=== PATIENT | female | born 1980 | race Caucasian/White ===

== ENCOUNTER 2019-04-14 09:07 | Outpatient (CLI) | payer BC ==
--- NOTE | 2019-04-14 11:26 | CT ---
CT neck soft tissues with and without contrast: (Parathyroid protocol) 04/14/2019 HISTORY: 39-year-old female with recurrent hyperparathyroidism after surgical removal of parathyroid adenoma i n 2016. COMPARISON: 11/06/2015. TECHNIQUE: Precontrast, 25 seconds postcontrast, and 65 second postcontrast, scans performed from T6-7 level to the inferior edge of orbits. Coronal and sagittal reconstructions. FINDINGS: The previously demonstrated enhancing nodule abutting the posterior surface of the right lobe of thyr oid gland at the tracheoesophageal groove, is no longer present. No new suspicious enhancing nodule is identified in the neck or mediastinum that is particularly suspicious for parathyroid adenoma. IMPRESSION: Negative.
[2019-04-14] MEDS ORDERED: Iopamidol 370 76% 100 ML VIAL ONE (13:49)
[2019-04-14] MEDS ORDERED: Iopamidol 370 76% 50 ML VIAL FS ONE (13:49)
== END 2019-04-14 09:08 | disposition home or self-care (01) ==
LOC: CT 09:07
PROVIDERS: ATTEND Specialist
DX: E21.3 Hyperparathyroidism, unspecified (principal)
CPT/HCPCS: 70492; Q9967